=== PATIENT | male | born 1945 | race Asian ===

== ENCOUNTER 2017-03-18 08:30 | Inpatient (IN) | payer OTHER ==
[~2017-03-18] VITALS: Ht 170.2 cm; Wt 66.3 kg
--- NOTE | 2017-03-18 08:55 | NUR ---
PT BIBA WITH C/O OF CP X 2 HOURS. PT REPORTS HAVING INTERCOURSE WITH HIS WHEN THE CP STARTED, PT STATES PAIN USUALLY GOES AWAY, DID NOT THIS TIME. PT REPORTS HX OF ANGINA. PT TOOK 2 HOME SL NITRO TABS AND 4 BABY ASA, WHEN MEDICS ARRIVED 2 MORE SL NITROS ADMINISTERED. PT REPORTS PAIN IS NON-RADIATING, MID- STERNAL, PRESSURE IN QUALITY, PAIN CONSTANT, BUT FLUCTUATES IN INTENSITY. PT CURRENTLY RATES PAIN 4/10. PT CHANGED INTO GOWN, CONNECTED TO CARDIORESP MONITORS, AWAITING EVAL BY PHYSICIAN.
[2017-03-18] MEDS ORDERED: MIRAPEX0.25 MG PO (09:01)
[2017-03-18] MEDS ORDERED: OLANZAPINE5 M2 PO (09:01)
[2017-03-18] MEDS ORDERED: ISOSORBIDE MONO30 MG (09:02)
[2017-03-18] MEDS ORDERED: LOSARTAN POTASS50 M1 (09:02)
[2017-03-18] MEDS ORDERED: SIMVASTATIN20 M1 (09:03)
[2017-03-18] MEDS ORDERED: SYN25 (09:03)
--- NOTE | 2017-03-18 09:20 | NUR ---
LAB AT BEDSIDE FOR LAB DRAWS.
[2017-03-18 09:39] LABS: CALCIUM 8.6 mg/dL (8.5-10.1); CARBON DIOXIDE 27.4 mmol/L (21-32); CHLORIDE SERUM 106 mmol/L (98-107); CREATININE SERUM 1.2 mg/dL (0.7-1.3); GLUCOSE SERUM 132 mg/dL (74-106); SODIUM SERUM 141 mmol/L (136-145)
[2017-03-18 09:45] LABS: ALKALINE PHOSPHATASE 92 U/L (46-116); ALT/SGPT 22 U/L (16-63); AST/SGOT 19 U/L (15-37); BILIRUBIN TOTAL 0.3 mg/dL (0.20-1.00)
[2017-03-18 09:53] LABS: BASOPHIL % 0.2 % (0-2); PLATELET COUNT 218 x10^3mcL (130-400); RED CELL DISTRIBUTION WIDTH 12.9 % (11.5-14.5)
[2017-03-18 09:55] LABS: ALBUMIN 3.2 g/dL (3.4-5.0)
--- NOTE | 2017-03-18 10:19 | NUR ---
PT UPDATED ON PLAN OF CARE AND ADMISSION. PT RESTING IN BED, COMFORT MEASURES, CALL LIGHT W/IN REACH. PT EQUAL CHEST RISE AND FALL, UNLABORED, NAD NOTED.
--- NOTE | 2017-03-18 11:27 | NUR ---
REPORT CALLED TO [facility] TO ASSUME CARE OF PT POST TRANSFER TO TELE UNIT.
--- NOTE | 2017-03-18 12:07 | NUR ---
RECEIVED PT FROM ER STAFF. PT ALERT ORIENTED x4. PT AMBULATED FROM GURNEY TO BED, STEADY GAIT. NO DISTRESS NOTED. TELE BOX #12 NSR ON MONITOR. PT REPORTS CHEST PAIN 1/10 AT MOMENT. DENIES SOB, ON 2LNC, EFFORTLESS BREATHING. CALL LIGHT WITHIN REACH, BED IN LOWEST POSITION.
[2017-03-18 13:39] LABS: CHOLESTEROL/HDL RATIO 2.9; MAGNESIUM 2.1 mg/dL (1.8-2.4); PHOSPHOROUS 1.7 mg/dL (2.5-4.9)
[2017-03-18 13:47] LABS: FREE T4 1.16 ng/dL (0.76-1.46); FREE THYROXINE INDEX 3.1 ug/dL (1.4-4.5); T4(THYROXINE) 8.8 ug/dL (4.7-13.3)
--- NOTE | 2017-03-18 13:50 | NUR ---
URINE SPECIMEN COLLECTED. SENT TO LAB.
[2017-03-18 13:51] VITALS: BP 116/62
[2017-03-18 13:52] LABS: T3 TOTAL 1.03 ng/mL
[2017-03-18 14:20] LABS: microscopic required? NO
[2017-03-18 14:36] LABS: urine erythrocyte NEGATIVE (NEGATIVE)
[2017-03-18 14:55] LABS: AMPHETAMINE QUAL UR NONE DETECTED (NEG <=1000)
[2017-03-18 17:15] VITALS: BP 113/63
--- NOTE | 2017-03-18 17:54 | NUR ---
MADE AWARE OF THE TROP 23.216.
--- NOTE | 2017-03-18 18:15 | NUR ---
TROPONIN: 23.216 DR. SAXENA. PT MADE AWARE OF FINDINGS TO PROCEED WITH HEPARIN INFUSION. HEPARIN PROTOCOL PUT IN PLACE. INFUSION STARTED AT 800UNIT/HR (8ML/HR). BOLUS OF 4000UNITS GIVEN. CALL LIGHT WITHIN REACH.
--- NOTE | 2017-03-18 19:03 | NUR ---
PTT ORDERED FOR 0030 PER HEPARIN PROTOCOL.
--- NOTE | 2017-03-18 19:30 | NUR ---
REC'D PT RESTING IN BED. PT IS AAOX4. TELE #12 SR WITH OCC. PVC'S. PT DENIES CP. LUNG SOUNDS CLEAR. NO SOB NOTED. HEP DRIP INFUSING TO LAC AT 800 UNITS/HR. INTACT AND PATENT. BED IN LOWEST POSITION. CALL LIGHT WITHIN REACH. WILL CONTINUE TO MONITOR.
[2017-03-18 21:18] VITALS: BP 130/74
--- NOTE | 2017-03-18 21:52 | NUR ---
PT C/O 610 CHEST PAIN. MORPHINE IVP GIVEN ORDERED (SEE MAR).
--- NOTE | 2017-03-18 22:27 | NUR ---
MORPHINE WAS EFFECTIVE. PT DENIES CHEST PAIN AT THIS TIME. WILL CONTINUE TO MONITOR.
--- NOTE | 2017-03-18 22:45 | NUR ---
Dr. Villanueva made aware of pts phosphorus level of 1.7.
[2017-03-19] VITALS (7 sets, daily range): BP systolic 106–156; BP diastolic 56–79
--- NOTE | 2017-03-19 01:30 | NUR ---
RECEIVED 3RD TROPONIN LEVEL = 12.8. DR ARANDA MADE AWARE. ALSO RECEIVED PTT RESULT = 72.6. PER HEPARIN PROTOCOL, INFUSION RATE DECREASED TO 700 UNITS/HR. NEXT PTT ORDERED FOR 0530.
--- NOTE | 2017-03-19 05:28 | NUR ---
PT RESTING IN BED IN NO DISTRESS. HEPARIN CONTINUES TO INFUSE AT 700 UNITS/HR. CALL LIGHT WITHIN REACH. WILL CONTINUE TO MONITOR.
--- NOTE | 2017-03-19 06:30 | NUR ---
PT C/O 12/25 CHEST PAIN RADIATING TO BACK. MEDICATED WITH MORPHINE ORDERED. PT ALSO COMPLAIN OF CHILLS AND COLD SWEATS. DR SOLARES WAS MADE AWARE.
--- NOTE | 2017-03-19 07:05 | NUR ---
PT C/O CHEST PAIN RADIATING TO BACK AT 7/10. MILD DIAPHORESIS PRESENT. MEDICATED PER EMAR. PT TOLERATED WELL. CALL LIGHT WITHIN REACH. WILL CONTINUE TO MONITOR.
--- NOTE | 2017-03-19 08:29 | NUR ---
RECEIVED PTT VALUE: 51.9 ORDERED PTT LAB DRAW FOR 1230 PER PROTOCOL. WILL CONTINUE TO MONITOR.
--- NOTE | 2017-03-19 08:30 | NUR ---
ECHO IN PROGRESS. PT TOLERATING PROCEDURE WELL.
--- NOTE | 2017-03-19 08:59 | NUR ---
PT STATES CHEST PAIN HAS SUBSIDED. 0/10, DENIES SWEATS, NO DIAPHORESIS NOTED. CALL LIGHT WITHIN REACH. WILL CONTINUE TO MONITOR.
--- NOTE | 2017-03-19 10:10 | NUR ---
HEPARIN INFUSION ON HOLD. PER DR. KIM.
--- NOTE | 2017-03-19 10:28 | NUR ---
SPOKE WITH PRIMARY RN DEISY REGARDING DR HOYOS INTENTION TO SEE PATIENT FOR POSSIBLE HEART CATH THIS AFTERNOON. INFORMED HIM THAT DR BURRELL VERBALIZED TO ME THAT HE WOULD BE IN AROUND 11:30 TO SPEAK WITH PATIENT. WILL CONTINUE TO MONITOR.
--- NOTE | 2017-03-19 11:45 | NUR ---
WITNESSED CONSENT TO PROCEDURE (CARDIAC CATH). DR. BURRELL EXPLAINED PROCEDURE PT VERBALIZED UNDERSTANDING. CHG WIPES ADMINISTERED.
--- NOTE | 2017-03-19 12:10 | NUR ---
PT PICKED UP BY MANAGER DESKTOP STAFF. TRANSPORTED VIA BED. NO DISTRESS AT MOMENT.
--- NOTE | 2017-03-19 14:05 | NUR ---
PT BACK FROM [facility] VIA BED. PT AWAKE, DENIES NAUSEA. VITAL SIGNS STABLE. HEPARIN INFUSION STARTED AT 800UNITS/HR. IV FLUIDS RESTARTED ORDERED. TR BAND IN PLACE, NO BLEEDING FROM SITE AT THIS MOMENT. CALL LIGHT WITHIN REACH. BED IN LOWEST POSITION.
--- NOTE | 2017-03-19 15:45 | NUR ---
TR BAND REMOVED FOLLOWING PROPER DEFLATION GUIDELINES. NO ACTIVE BLEEDING AT SITE. BANDAID PLACE AT SITE. PT TOLERATED PROCEDURE WELL. CALL LIGHT WITHIN REACH. AT BEDSIDE.
--- NOTE | 2017-03-19 18:21 | NUR ---
RECEVIED CALL FROM [facility]- BED CONTROL- [employer], NOMI [phone], BED IS AVAILABLE FOR [facility] AFTER 7 PM TONIGHT. TELE BED 324A, PHONE NO. FOR REPORT [phone], ACCEPTING PHYSICIAN DR. GUILLEN. DR. MCDONALD MADE AWARE OF ABOVE INFO.
--- NOTE | 2017-03-19 19:43 | NUR ---
PTT READING SHOWS 74.8 PER INTERNET MARKETING SPECIALIST, HEPARIN DRIP RATE DECREASED TO 7ML/HR PER PROTOCOL. ALERT AND ORIENTED. RESTING QUIETLY IN BED. DENIES HEADACHE/DIZZINESS. RESP. EVEN AND UNLABORED. ON ROOM AIR, NO DISTRESS NOTED. AFEBRILE AND VITAL SIGNS STABLE. SR ON THE MONITOR, DENIES CHEST PAIN OR PRESSURE. DENIES ANY DISCOMFORT AT THIS TIME. IVF, NS AT 100ML/HR, INTACT AND INFUSING VIA LAC, SITE CLEAR. ,S/P CARDIAC CATH TODAY, SITE RT WRIST, WITH BANDAID, NO HEMATOMA OR BLEEDING NOTED.ARM BOARD STILL IN PLACE. ABLE TO MOVE ALL EXTS. VOIDING FREELY. CALL LIGHT WITHIN REACH. WILL CONTINUE TO MONITOR.
--- NOTE | 2017-03-19 21:25 | NUR ---
PT TO BE TRANSFERRED TO [facility] ORDERED. PT AWARE. VITAL SIGNS STABLE. DENIES PAIN OR ANY DISCOMFORT. REPORT GIVEN TO NURSE BEEBE. WILL DISCONT. HEPARIN DRIP AND IVF AND REBOLUS PT WITH HEPARIN 3000UNITS PRIOR TO TRANSFER PER ORDER. AWAITING MED. TRANSPORT.
--- NOTE | 2017-03-19 22:00 | NUR ---
HEPARIN DRIP DISCONT. ORDERED. AND 3000UNITS IV BOLUS GIVEN. HL TO LAC, INTACT AND PATENT. DUE MEDS GIVEN ORDERED, [place]. BETH. TO [facility] VIA MED. TRANSPORT WITH PERSONAL BELONGINGS.
== END 2017-03-19 22:05 | disposition short-term general hospital (02) | DRG 281 ==
LOC: ED 08:30 → DU 11:03
PROVIDERS: Emergency Medicine; Internal Medicine Interventional Cardiology; ADMIT Family Medicine Sports Medicine
PROC: B2151ZZ Fluoroscopy of Left Heart using Low Osmolar Contrast (ICD-10-PCS; 2017-03-19)
PROC: B2111ZZ Fluoroscopy of Multiple Coronary Arteries using Low Osmolar Contrast (ICD-10-PCS; 2017-03-19)
PROC: 4A023N7 Measurement of Cardiac Sampling and Pressure, Left Heart, Percutaneous Approach (ICD-10-PCS; principal; 2017-03-19 12:30)
DX: I21.4 Non-ST elevation (NSTEMI) myocardial infarction (principal); E44.0 Moderate protein-calorie malnutrition; R73.03 Prediabetes; E83.39 Other disorders of phosphorus metabolism; E03.9 Hypothyroidism, unspecified; Z68.22 Body mass index [BMI] 22.0-22.9, adult
CPT/HCPCS: CLHCL; 82962; 83880; 84439; C1769; C1887; C1894; J1644; J2001; J2250; J2270; J3010; J3490; J7030; J7050; Q0092; Q9967